=== PATIENT | male | born 1950 | race Hispanic/Latino ===

== ENCOUNTER 2025-03-22 23:00 | Emergency (ER) | payer MEDICARE ==
[2025-03-22] MEDS ORDERED: Acetaminophen 325 MG TAB ONE (23:33)
[2025-03-23] MEDS ORDERED: cloNIDine 0.1 MG TAB ONE (00:15)
== END 2025-03-23 01:09 | disposition home or self-care (01) ==
LOC: ERS 23:00
DX: S93.401A Sprain of unspecified ligament of right ankle, initial encounter (principal); I10 Essential (primary) hypertension; W20.8XXA Other cause of strike by thrown, projected or falling object, initial encounter
CPT/HCPCS: 73610; 73630; J2270; 96372; 99283